=== PATIENT | male | born 1935 | race Caucasian/White ===

== ENCOUNTER 2022-11-23 22:34 | Inpatient (IN) | payer OTHER, BC ==
[2022-11-23] MEDS ORDERED: ACETAMINOPHEN 500 MG TABLET (FP) PO ONE (22:56)
[2022-11-23] MEDS ORDERED: ACETAMINOPHEN 500 MG TABLET (FP) ONE (23:07)
[2022-11-23] MEDS ORDERED: DEXAMETHASONE SOD PHOSPHATE/PF 10 MG/ML SDV ONE (23:49)
[2022-11-24] MEDS ORDERED: DEXAMETHASONE SOD PHOSPHATE 4 MG/1 ML VIAL IVPUSH ONE (00:18)
[2022-11-24 00:43] LABS: BASO % 0.6 % (0-2.0); EOS % 1.1 % (0-4.5); HEMATOCRIT 44.1 % (35.4-49); HEMOGLOBIN 14.5 GM/dL (11.7-16.9); LYMPH % 19.3 % (8-40); MCH 32.5 pg (25.7-33.7); MCHC 32.8 g/dl (32.0-35.9); MEAN CELL VOLUME 99.2 fl (80-96); MEAN PLT VOLUME 7.8 fl (7.5-11.1); MONO % 12.8 % (3.8-10.2); NEUT % 66.2 % (42.8-82.8); PLATELET COUNT 143 10^3/uL (134-434); RBC 4.45 M/mm3 (4.00-5.60); RDW 14.9 % (11.9-15.9); WHITE BLOOD COUNT 7.7 K/mm3 (4.0-10.0)
[2022-11-24 00:59] LABS: ALBUMIN 3.6 g/dl (3.4-5.0); CALCIUM 8.1 mg/dL (8.5-10.1)
[2022-11-24 01:02] LABS: CREATININE 1.4 mg/dL (0.55-1.3)
[2022-11-24 01:04] LABS: BILIRUBIN,TOTAL 0.4 mg/dL (0.2-1); TOT PROT 6.3 g/dl (6.4-8.2)
[2022-11-24 01:54] LABS: POTASSIUM 4.2 mmol/L (3.5-5.1)
[2022-11-24] MEDS ORDERED: REMDESIVIR 200 MG in SODIUM CHLORIDE 250 ML IVPB ONE ×2 (03:00→05:30)
[2022-11-24 03:22] VITALS: RESP 18; BMI 27.7
[2022-11-24] MEDS ORDERED: ACETAMINOPHEN 325 MG TABLET (FP) PO PRN (05:30)
[2022-11-24] MEDS ORDERED: TAMSULOSIN HCL 0.4 MG CAP PO SCH (08:30)
[2022-11-24] MEDS ORDERED: guaiFENesin/D-METHORPHAN HB 10 ML UNIT-DOSE CUPS PO PRN (09:02)
[2022-11-24] MEDS ORDERED: ALBUTEROL SO4 2.5/IPRATROPIUM 0.5 INH SOL 3 ML VIAL.NEB. NEB PRN (09:02)
[2022-11-24 09:10] LABS: HEMATOCRIT 45.2 % (35.4-49); HEMOGLOBIN 14.9 GM/dL (11.7-16.9); MCH 32.6 pg (25.7-33.7); MCHC 32.9 g/dl (32.0-35.9); MEAN CELL VOLUME 99.1 fl (80-96); MEAN PLT VOLUME 7.9 fl (7.5-11.1); PLATELET COUNT 133 10^3/uL (134-434); RBC 4.56 M/mm3 (4.00-5.60); RDW 14.7 % (11.9-15.9); WHITE BLOOD COUNT 4.8 K/mm3 (4.0-10.0)
[2022-11-24 09:55] LABS: BILIRUBIN,TOTAL 0.4 mg/dl (0.2-1); BLOOD UREA NITROGEN 20.5 mg/dl (7-18); CALCIUM 8.3 mg/dl (8.5-10.1); CREATININE 1.3 mg/dl (0.6-1.3); MAGNESIUM 2.2 mg/dL (1.8-2.4); POTASSIUM 4.6 mmol/L (3.5-5.1); SGOT/AST 16.3 U/L (15-37); SGPT/ALT 9.8 U/L (7-52); TOT PROT 6.2 g/dl (6.4-8.2)
[2022-11-24] MEDS ORDERED: ENOXAPARIN NA (PORCINE) 40 MG/0.4 ML DISP.SYRIN SQ SCH (10:00)
[2022-11-24] MEDS ORDERED: DEXAMETHASONE SOD PHOSPHATE 10 MG/1 ML VIAL IVPUSH SCH (10:00)
[2022-11-24] MEDS ORDERED: PAROXETINE HCL 25 MG PO SCH (10:00)
[2022-11-24 14:44] VITALS: BP 135/62; PULSE 63; TEMP 98.3
[2022-11-24] MEDS ORDERED: ATORVASTATIN CA 20 MG TABLET (FP) PO SCH (22:00)
[2022-11-25] MEDS ORDERED: DEXAMETHASONE SOD PHOSPHATE 10 MG/1 ML VIAL IVPUSH SCH (10:00)
== END 2022-11-24 17:00 | disposition home or self-care (01) | DRG 179 ==
LOC: FER 22:34 → FM/S 11-24 01:29
PROVIDERS: ADMIT Internal Medicine; ATTEND Internal Medicine
DX: U07.1 COVID-19 (principal); E78.5 Hyperlipidemia, unspecified; K21.9 Gastro-esophageal reflux disease without esophagitis; R53.83 Other fatigue; R09.02 Hypoxemia; N40.0 Benign prostatic hyperplasia without lower urinary tract symptoms
CPT/HCPCS: 36415; 71045-TC-FY; 80053; 82728; 83605; 83615; 83735; 84484; 85025; 85027; 85379; 86140; 87040; 87086; 87635; 97116-GP; 97162-GP; 99285-25; J1100

== ENCOUNTER 2023-04-29 07:36 | Day surgery (SDC) | payer OTHER, BC ==
[2023-04-23 11:41] VITALS: BMI 27.8
[2023-04-29] MEDS: PHENYLEPHRINE 2.5% OPTHALMIC DROP 2ML BOTTLE ONE ×3 (08:05→08:15)
[2023-04-29] MEDS: CYCLOPENTOLATE 2% OPHTH SOLN 2 ML BOTTLE ONE ×3 (08:05→08:15)
[2023-04-29] MEDS: TROPICAMIDE 1% OPHTH SOLN 15 ML BOTTLE ONE ×3 (08:05→08:15)
[2023-04-29] MEDS: CIPROFLOXACIN HCL 0.3% OPHTH 2.5ML BOTTLE ONE ×3 (08:05→08:15)
[2023-04-29] MEDS ORDERED: NEO/POLYMYX B SULF/DEXAMETH OPHTHALMIC 5ML BOTTLE ONE (08:16)
[2023-04-29] MEDS ORDERED: BSS (NA/CA/MG/K) BALANCED SALT SOLUTION OPHTH SOLN 15 ML BOTTLE ONE (08:16)
[2023-04-29] MEDS ORDERED: CARBACHOL 0.01% INTRA-OCULAR 1.5 ML VIAL ONE (08:16)
[2023-04-29] MEDS ORDERED: MIDAZOLAM HCL 2 MG/2 ML SINGLE DOSE VIAL ONE (09:34)
[2023-04-29 12:47] VITALS: TEMP 98
[2023-04-29 12:57] VITALS: BP 134/62; PULSE 64; RESP 16
== END 2023-04-29 11:30 | disposition home or self-care (01) ==
LOC: FASU 07:36
PROVIDERS: ATTEND Ophthalmology
PROC: 08RJ3JZ Replacement of Right Lens with Synthetic Substitute, Percutaneous Approach (ICD-10-PCS; principal; 2023-04-29 09:42)
DX: H26.8 Other specified cataract (principal)
CPT/HCPCS: 66984; V2632